=== PATIENT | female | born 2000 | race Hispanic/Latino ===

== ENCOUNTER 2024-10-28 21:53 | Emergency (ER) | payer SELFPAY ==
[~2024-10-28] VITALS: Ht 160 cm; Wt 98.0 kg
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
[2024-10-28 23:10] LABS: APPEARANCE,URINE CLOUDY (CLEAR); BILIRUBIN,URINE NEGATIVE (NEGATIVE); COLOR,URINE YELLOW (YELLOW); GLUCOSE, URINE (UA) NEGATIVE (NEGATIVE); KETONES,URINE 60 mg/dL (NEGATIVE); LEUKOCYTE ESTERASE ,URINE NEGATIVE Leu/uL (NEGATIVE); NITRATE,URINE NEGATIVE (NEGATIVE); OCCULT BLOOD,URINE NEGATIVE (NEGATIVE); PROTEIN,URINE 70 mg/dL (NEGATIVE)
[2024-10-28 23:11] LABS: ADD UA MICROSCOPIC YES; HCG,QUALITATIVE URINE NEGATIVE (NEGATIVE)
[2024-10-28 23:12] LABS: CREATININE 0.8 mg/dL (0.5-1.0); POTASSIUM 3.5 mmol/L (3.5-5.1)
[2024-10-28 23:13] LABS: MUCUS,URINE MANY LPF (None Seen); SQUAMOUS EPITHELIAL CELL,UR RARE /HPF (0-2)
--- NOTE | 2024-10-28 23:23 | NUR ---
unable to pull medications. pharmacy reloading [facility], [place]
[2024-10-28] MEDS: LIDOCAINE HCL 2% VISCOUS 15 ML UDCUP PO ONE (23:32)
[2024-10-28] MEDS: MAG/ALUM/SIMETH 30 ML UDCUP PO ONE (23:32)
[2024-10-28] MEDS: DICYCLOMINE HCL 10 MG/5 ML ML PO ONE (23:32)
--- NOTE | 2024-10-28 23:34 | NUR ---
MEDICATIONS EXPLAINED TO PT, REASON FOR GIVING. PT VERBALIZED UNDERSTANDING
[2024-10-29 00:10] VITALS: BP 155/90; PULSE 79; RESP 16; TEMP 98; O2SAT 99
[2024-10-29] MEDS: LACTATED RINGERS 1000ML IV SCH (00:18)
--- NOTE | 2024-10-29 00:18 | NUR ---
OK TO DISCHARGE WITHOUT IV FLUIDS
--- NOTE | 2024-10-29 08:11 | HMCIMG ---
ABDOMEN SINGLE VIEW INDICATION: Pain COMPARISON: None FINDINGS: Supine view only No abnormal bowel dilation noted. No abnormal calcifications identified. No gross free air detected. IMPRESSION: No evidence for bowel obstruction.
== END 2024-10-29 00:19 | disposition home or self-care (01) ==
LOC: EDH 21:53
DX: K59.00 Constipation, unspecified (principal)
CPT/HCPCS: 36415; 74018; 80048; 81001; 81025; 99284